=== PATIENT | male | born 1995 | race Caucasian/White ===

== ENCOUNTER 2017-04-11 10:45 | Emergency (ER) | payer SELFPAY ==
[2017-04-11 11:11] VITALS: BP 128/70
[2017-04-11] MEDS ORDERED: Lidocaine 2% VISCOUS* 15 ML UDC PO ONE (11:48)
--- NOTE | 2017-04-11 11:49 | UC ---
Throat Pain/Nasal Jesse HPI - HPI Summary HPI Summary: Pt with sore throat x 2 days. laryngitis. mild nausea, no vomiting. no fever, chills no ear pain. + sinus congestion with PND no analgesia taken. + sick contact Pt's medications reviewed this visit - History of Current Complaint Chief Complaint: UCGeneralIllness Stated Complaint: SORE THROAT Time Seen by Provider: 04/11/17 11:35 Hx Obtained From: Patient Onset/Duration: Gradual Onset, Lasting Days Severity: Mild Cough: Nonproductive Associated Signs & Symptoms: Positive: Nasal Discharge. Negative: Fever, Vomiting - Allergies/Home Medications Allergies/Adverse Reactions: Allergies Allergy/AdvReac Type Severity Reaction Status Date / Time No Known Allergies Allergy Verified 04/11/17 11:11 Home Medications: Home Medications Jrzcedsjoutso-[id number]-[id number] [Vicks Dayquil/Nyquil Cold] 2 tab PO Q6HR PRN 07/27 [History Confirmed 04/11/17] PMH/Surg Hx/FS Hx/Imm Hx Previously Healthy: Yes - Surgical History Surgical History: None Surgery Procedure, Year, and Place: Denies - Family History Known Family History: Positive: None - Social History Occupation: Employed Full-time Lives: With Family Alcohol Use: Occasionally Substance Use Type: None Smoking Status (MU): Current Some Day Smoker Amount Used/How Often: 3cig/week Household Exposure Type: Cigarettes - Immunization History Most Recent Influenza Vaccination: Not UTD Vaccination Up to Date: Yes Review of Systems Constitutional: Negative Skin: Negative ENT: Sore Throat, Sinus Congestion Respiratory: Cough All Other Systems Reviewed And Are Negative: Yes Physical Exam Triage Information Reviewed: Yes Appearance: Well-Appearing, No Pain Distress, Well-Nourished Vital Signs: Initial Vital Signs Temp 98.0 F 04/11/17 11:07 Pulse 56 04/11/17 11:07 Resp 16 04/11/17 11:07 BP 128/70 04/11/17 11:07 Pulse Ox 100 04/11/17 11:07 Vital Signs Reviewed: Yes Eye Exam: Normal Eyes: Positive: Conjunctiva Clear ENT: Positive: Hearing grossly normal, Pharyngeal erythema, Nasal congestion, TMs normal, Hoarse voice. Negative: Tonsillar swelling, Tonsillar exudate Dental Exam: Normal Neck exam: Normal Neck: Positive: Supple, Nontender Respiratory Exam: Normal Respiratory: Positive: Chest non-tender, Lungs clear, Normal breath sounds, No respiratory distress, No accessory muscle use Cardiovascular Exam: Normal Cardiovascular: Positive: RRR, No Murmur, Pulses Normal Abdominal Exam: Normal Abdomen Description: Positive: Nontender, No Organomegaly, Soft Bowel Sounds: Positive: Present Musculoskeletal Exam: Normal Neurological Exam: Normal Neurological: Positive: Alert, Muscle Tone Normal Psychological Exam: Normal Psychological: Positive: Normal Response To Family Skin Exam: Normal Throat Pain/Nasal Course/Dx - Course Course Of Treatment: Pt with sore throat, laryngitis x 2 day. dry cough, nasal congestion. rapid strep neg. Pt given lidocaine - did not like med. symptomatic tx. cold. work note. secretion precaution - Differential Dx/Diagnosis Provider Diagnoses: pharyngitis Discharge - Discharge Plan Condition: Stable Disposition: HOME Patient Education Materials: Pharyngitis (ED) Forms: *Work Release Referrals: Obed BUNN,Sugar [Primary Care Provider] - Additional Instructions: - Okay to alternate ibuprofen (Advil, Motrin) and Tylenol every 3 hours for pain. Take with food. Do NOT take for more than 4-5 days - Okay to gargle and spit every 4 hours as needed for pain - Stay well hydrated - frequent sips of cold fluids will be soothing to your throat (popsicles, jello, ice cream, ice water). Avoid excess caffeine until your symptoms have resolved. - Do not share eating, drinking utensils. Throw out your toothbrush when your symptoms resolved -Throat infections are spread by oral secretions - do not share eating or drinking utensils until you symptoms are resolved. Clean items that may get your secretions such as cell phones, ipads, computer mouse, television remotes - Contact your doctor to arrange a follow-up appointment as needed
== END 2017-04-11 12:24 | disposition home or self-care (01) ==
LOC: UCEAST 10:45
DX: J02.9 Acute pharyngitis, unspecified (principal); F17.210 Nicotine dependence, cigarettes, uncomplicated
CPT/HCPCS: 87651; 99212; G0463

== ENCOUNTER 2018-01-27 09:58 | Emergency (ER) | payer BC, OTHER ==
[2018-01-27 10:13] VITALS: BP 134/70
[2018-01-27] MEDS ORDERED: Tetracaine 0.5% OPTH.SOL 4 ML* 1 DROP BTL BOTH EYES ONE (10:17)
[2018-01-27] MEDS ORDERED: Acetaminop/Codeine 30 MG TAB* 1 TAB (300 MG/30 MG) PO ONE (10:31)
--- NOTE | 2018-01-27 10:32 | UC ---
Eye Complaint HPI - HPI Summary HPI Summary: This is scribe [facility] documenting for attending Nacho Guzman MD. Pt is a 22 y/o M presents to ED c/o eye pain. Pain is rated a 6/10, described as an ache. Assoc. Sx: eye pain. Denies: fever. 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 He reports pain is aggravated by ADL's. I, Dr. Guzman, personally performed the services described in this documentation as scribed in my presence and it is both accurate and complete. - History of Current Complaint Chief Complaint: UCEye Stated Complaint: EYE COMPLAINT Time Seen by Provider: 01/27/18 10:14 Hx Obtained From: Patient Onset/Duration: Sudden Onset, Still Present Timing: Constant Severity Currently: Moderate Pain Intensity: 6 Pain Scale Used: 0-10 Numeric Location of Injury: Conjunctiva Aggravating Factor(s): Other - POS: ADL's Associated Signs And Symptoms: Negative: Vision Impairment Left - blurred vision , Fever - Allergies/Home Medications Allergies/Adverse Reactions: Allergies Allergy/AdvReac Type Severity Reaction Status Date / Time No Known Allergies Allergy Verified 01/27/18 10:13 Home Medications: Home Medications Pantoprazole TAB (NF) [Protonix TAB (NF)] 20 mg PO DAILY 01/27/18 [History Confirmed 01/27/18] PMH/Surg Hx/FS Hx/Imm Hx Other Endocrine History: NEG: DM Other Cardiovascular History: NEG: CAD, HTN - Surgical History Surgical History: None Surgery Procedure, Year, and Place: Denies - Family History Known Family History: Negative: Cardiac Disease, Hypertension, Diabetes - Social History Occupation: Student Lives: With Family Alcohol Use: Occasionally Substance Use Type: None Smoking Status (MU): Current Some Day Smoker Type: Cigarettes Amount Used/How Often: 3cig/week Household Exposure Type: Cigarettes - Immunization History Most Recent Influenza Vaccination: Not UTD Vaccination Up to Date: Yes Review of Systems Constitutional: Other - NEG: fever, chills Eyes: Other - POS: eye pain NEG: blurred vision All Other Systems Reviewed And Are Negative: Yes Physical Exam - Summary Physical Exam Summary: VITAL SIGNS: Reviewed. GENERAL: Patient is a well-developed and nourished Male who is lying comfortable in the stretcher. Patient is not in any acute respiratory distress. HEAD AND FACE: Normocephalic EYES: L eye conjuntival injection, no FB seen secondary to lack of flourescein. EARS: Hearing grossly intact. MOUTH: Oropharynx within normal limits. NECK: Supple, trachea is midline, no adenopathy, no JVD, no carotid bruit. CHEST: Symmetric, no tenderness at palpation LUNGS: Clear to auscultation bilaterally. No wheezing or crackles. CVS: Regular rate and rhythm, S1 and S2 present, no murmurs or gallops appreciated. ABDOMEN: Soft, non-tender. Bowel sounds are normal. No abdominal abnormal pulsations. EXTREMITIES: Full ROM in all major joints, no edema, no cyanosis or clubbing. NEURO: Alert and oriented x 3. No acute neurological deficits. Speech is normal and follows Triage Information Reviewed: Yes Vital Signs: Initial Vital Signs Temp 98.2 F 01/27/18 10:06 Pulse 60 01/27/18 10:06 Resp 18 01/27/18 10:06 BP 134/70 01/27/18 10:06 Pulse Ox 99 01/27/18 10:06 Vital Signs Reviewed: Yes Eye Complaint Course/Dx - Course Course Of Treatment: 22-year-old male presents to the urgent care with chief complaint of having left eye irritation. In the urgent care unable to perform the thoracentesis to rule out coronary patient. There is no available fluorescein strip. Therefore I called Dr. Sánchez's office from ophthalmology and he will be seen the patient is alert and oriented x3. The patient was given 1 Tylenol No. 3 and he will be discharged home with follow-up with and Dr. Sáncehz. Patient agrees with the plan. Patient is hemodynamically stable. - Differential Dx/Diagnosis Provider Diagnoses: eye irritation Discharge - Sign-Out/Discharge Documenting (check all that apply): Patient Departure All imaging exams completed and their final reports reviewed: Yes - Discharge Plan Condition: Stable Disposition: HOME Patient Education Materials: Eye Wash (Into the eye), Eye Foreign Body (ED) Referrals: Irvin Sánchez MD [Medical Doctor] - 3 Days Sugar Clay MD [Primary Care Provider] - 3 Days Additional Instructions: See Dr. Sánchez for further workup of todays visit FOLLOW UP WITH YOUR PRIMARY CARE PROVIDER WITHIN ONE WEEK FOR HIGH BLOOD PRESSURE NOTED TODAY. RETURN TO URGENT CARE FOR ANY WORSENING OR NEW SYMPTOMS. - Billing Disposition and Condition Condition: STABLE Disposition: Home - Attestation Statements Document Initiated by Krissy: Yes Documenting Scribe: Frederick Noguera Provider For Whom Krissy is Documenting (Include Credential): Nacho Guzman MD. Scribe Attestation: Frederick Ariza, hamibed for Nacho Guzman MD. on 01/27/18 at 2133. Scribe Documentation Reviewed: Yes Provider Attestation: The documentation as recorded by the Frederick madrid accurately reflects the service I personally performed and the decisions made by , Nacho Guzman MD.
--- NOTE | 2018-01-28 11:08 | UC ---
- Progress Note Progress Note: no imaging studies ordered Discharge - Sign-Out/Discharge Documenting (check all that apply): Post-Discharge Follow Up All imaging exams completed and their final reports reviewed: No Studies - Discharge Plan Condition: Stable Disposition: HOME Patient Education Materials: Eye Wash (Into the eye), Eye Foreign Body (ED) Referrals: Irvin Sánchez MD [Medical Doctor] - 3 Days Sugar Clay MD [Primary Care Provider] - 3 Days Additional Instructions: See Dr. Sánchez for further workup of todays visit FOLLOW UP WITH YOUR PRIMARY CARE PROVIDER WITHIN ONE WEEK FOR HIGH BLOOD PRESSURE NOTED TODAY. RETURN TO URGENT CARE FOR ANY WORSENING OR NEW SYMPTOMS. - Billing Disposition and Condition Condition: STABLE Disposition: Home
== END 2018-01-27 10:45 | disposition home or self-care (01) ==
LOC: UCEAST 09:58
DX: H57.8 Other specified disorders of eye and adnexa (principal); F17.210 Nicotine dependence, cigarettes, uncomplicated
CPT/HCPCS: 99212; A9270-GY; G0463

== ENCOUNTER 2018-11-03 12:59 | Emergency (ER) | payer BC ==
--- NOTE | 2018-11-03 13:53 | UC ---
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 1 week ago started feeling intermittant numbness in R hand, worse in am , but also occurs throughout day. 2 days ago started feeling same symptoms in L hand. describes feeling "pins and needles" in hand and fingers, occassionally feels pain in forearms as well, resolves if repositions hand and arm. has tried no treatment - History of Current Complaint Chief Complaint: UCUpperExtremity Stated Complaint: NUMBING IN HANDS AND FINGERS Time Seen by Provider: 11/03/18 13:41 Hx Obtained From: Patient Onset/Duration: Gradual Onset Timing: Intermittent Episodes Lasting: - few minutes Pain Intensity: 0 Associated Signs & Symptoms: Negative: Dizziness, Trauma, Weakness - Allergy/Home Medications Allergies/Adverse Reactions: Allergies Allergy/AdvReac Type Severity Reaction Status Date / Time No Known Allergies Allergy Verified 11/03/18 13:11 Home Medications: Home Medications Arginine [l-Arginine] 1,000 mg PO 11/03/18 [History] Dee Root 550 mg PO 11/03/18 [History] Ginkgo Biloba 120 mg PO 11/03/18 [History] Multivitamin [Multivitamins] 1 cap PO 11/03/18 [History] PMH/Surg Hx/FS Hx/Imm Hx Previously Healthy: Yes - Surgical History Surgical History: None Surgery Procedure, Year, and Place: Denies - Family History Known Family History: Negative: Cardiac Disease, Hypertension, Diabetes - Social History Occupation: Employed Full-time Lives: With Family Alcohol Use: Occasionally Substance Use Type: None Smoking Status (MU): Former Smoker Type: Cigarettes Amount Used/How Often: 3cig/week Household Exposure Type: Cigarettes - Immunization History Most Recent Influenza Vaccination: Not UTD Vaccination Up to Date: Yes Review of Systems All Other Systems Reviewed And Are Negative: Yes Constitutional: Positive: Negative Respiratory: Positive: Negative Cardiovascular: Positive: Negative Musculoskeletal: Negative: Decreased ROM Neurological: Positive: Numbness - hands Psychological: Positive: Negative Is Patient Immunocompromised?: No Physical Exam Triage Information Reviewed: Yes Appearance: Well-Appearing, No Pain Distress, Well-Nourished Vital Signs: Initial Vital Signs Temp 98.6 F 11/03/18 13:07 Pulse 61 11/03/18 13:07 Resp 18 11/03/18 13:07 BP 145/83 11/03/18 13:07 Pulse Ox 98 11/03/18 13:07 Vital Signs Reviewed: Yes Respiratory Exam: Normal Cardiovascular Exam: Normal Musculoskeletal Exam: Normal Musculoskeletal: Positive: Strength Intact, ROM Intact, No Edema Neurological Exam: Normal Neurological: Positive: Alert, Other: - positive phalan's test R & L hand/ fingers within 30 secs Psychological Exam: Normal Skin Exam: Normal Course/Dx - Differential Dx - Multi-Symptom Differential Diagnoses: Other - carpal tunnel syndrome, muscle strain - Diagnoses Provider Diagnosis: Carpal tunnel syndrome on both sides Discharge - Sign-Out/Discharge Documenting (check all that apply): Patient Departure All imaging exams completed and their final reports reviewed: No Studies - Discharge Plan Condition: Good Disposition: HOME Referrals: Sugar Clay MD [Primary Care Provider] - 2 Weeks (if symptoms no better) Additional Instructions: Carpal tunnel syndrome is a common condition that causes pain, numbness, and tingling in the hand and arm. The condition occurs when one of the major nerves to the hand the median nerve is squeezed or compressed as it travels through the wrist. Symptoms of carpal tunnel syndrome may include: * Numbness, tingling, burning, and painprimarily in the thumb and index, middle , and ring fingers * Occasional shock-like sensations that radiate to the thumb and index, middle, and ring fingers * Pain or tingling that may travel up the forearm toward the shoulder * Weakness and clumsiness in the handthis may make it difficult to perform fine movements such as buttoning your clothes * Dropping thingsdue to weakness, numbness, or a loss of proprioception ( awareness of where your hand is in space) In most cases, the symptoms of carpal tunnel syndrome begin graduallywithout a specific injury. Many patients find that their symptoms come and go at first. However, as the condition worsens, symptoms may occur more frequently or may persist for longer periods of time. Night-time symptoms are very common. Because many people sleep with their wrists bent, symptoms may awaken you from sleep. During the day, symptoms often occur when holding something for a prolonged period of time with the wrist bent forward or backward, such as when using a phone, driving, or reading a book. Instructions: Start Vitamin B6 supplement every day (over the counter) use the cock-up splint given to you at bedtime every night (may use one on Left wrist as well) Also use ibuprofen 600-800mg every 6 hours fr the next 7-10 days. Take with food - Billing Disposition and Condition Condition: GOOD Disposition: Home - Attestation Statements Provider Attestation: I was available for consult. This patient was seen by the SEN. The patient was not presented to, seen by, or examined by me. -Brynn
[2018-11-03 14:16] VITALS: BP 145/83
== END 2018-11-03 14:14 | disposition home or self-care (01) ==
LOC: UCEAST 12:59
DX: G56.03 Carpal tunnel syndrome, bilateral upper limbs (principal); Z87.891 Personal history of nicotine dependence
CPT/HCPCS: 99212; G0463

== ENCOUNTER 2019-01-13 10:12 | Emergency (ER) | payer BC, OTHER ==
[2019-01-13 10:29] VITALS: BP 117/67
--- NOTE | 2019-01-13 10:45 | UC ---
Skin Complaint HPI - HPI Summary HPI Summary: 23 yo male presents with sore to left foot. 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 About 3-4 days ago he developed a small red rash to the anterior aspect of his left ankle. He developed pain and blistering to the area. He popped the blister and applied a bandage. He is here today with concerns of infection. Denies fever, chills, drainage, or streaking. - History of Current Complaint Chief Complaint: UCRash Time Seen by Provider: 01/13/19 10:31 Stated Complaint: RASH Hx Obtained From: Patient Onset/Duration: Gradual Onset Onset Severity: Moderate Current Severity: Moderate Pain Intensity: 4 Pain Scale Used: 0-10 Numeric - Allergy/Home Medications Allergies/Adverse Reactions: Allergies Allergy/AdvReac Type Severity Reaction Status Date / Time No Known Allergies Allergy Verified 01/13/19 10:29 PMH/Surg Hx/FS Hx/Imm Hx - Additional Past Medical History Additional PMH: None - Surgical History Surgical History: None Surgery Procedure, Year, and Place: Denies - Family History Known Family History: Negative: Cardiac Disease, Hypertension, Diabetes - Social History Occupation: Employed Full-time Lives: With Family Alcohol Use: Occasionally Substance Use Type: None Smoking Status (MU): Former Smoker Type: Cigarettes Amount Used/How Often: 3cig/week Household Exposure Type: Cigarettes - Immunization History Most Recent Influenza Vaccination: Not UTD Vaccination Up to Date: Yes Review of Systems All Other Systems Reviewed And Are Negative: Yes Constitutional: Positive: Negative Skin: Positive: Other - Sore on left foot Respiratory: Positive: Negative Cardiovascular: Positive: Negative Neurovascular: Positive: Negative Musculoskeletal: Positive: Negative Neurological: Positive: Negative Psychological: Positive: Negative Physical Exam - Summary Physical Exam Summary: GENERAL: NAD. WDWN. No pain distress. SKIN: LEFT ankle: Anterior ankle with 1.5cm diameter area of open wound just through the epidermis with healing tissue - consistent with recently popped blister. Mildly TTP. No drainage, streaking, erythema, or edema. NECK: Supple. Nontender. No lymphadenopathy. CHEST: No accessory muscle use. Breathing comfortably and in no distress. CV: Pulses intact. Cap refill <2seconds MSK: LEFT ankle from NEURO: Alert. PSYCH: Age appropriate behavior. Triage Information Reviewed: Yes Vital Signs: Initial Vital Signs Temp 98.3 F 01/13/19 10:26 Pulse 58 01/13/19 10:26 Resp 18 01/13/19 10:26 BP 117/67 01/13/19 10:26 Pulse Ox 100 01/13/19 10:26 Vital Signs Reviewed: Yes Course/Dx - Course Course Of Treatment: Wound appears to be healing well, but will place him on bactroban ointment for the open wound. Bandaged today with telfa. Advised to keep covered changing the dressing daily until well healed. - Diagnoses Provider Diagnosis: Blister of left ankle Discharge - Sign-Out/Discharge Documenting (check all that apply): Patient Departure All imaging exams completed and their final reports reviewed: No Studies - Discharge Plan Condition: Stable Disposition: HOME Prescriptions: Mupirocin 2% OINT* [Bactroban 2 % Oint*] 1 applic TOPICAL BID #1 tube Patient Education Materials: Blister (ED) Referrals: Sugar Clay MD [Primary Care Provider] - Additional Instructions: If you develop a fever, shortness of breath, chest pain, new or worsening symptoms - please call your PCP or go to the ED immediately. Change the dressing daily until well healed - Billing Disposition and Condition Condition: STABLE Disposition: Home
== END 2019-01-13 10:54 | disposition home or self-care (01) ==
LOC: UCEAST 10:12
DX: S90.522A Blister (nonthermal), left ankle, initial encounter (principal); W60.XXXA Contact with nonvenomous plant thorns and spines and sharp leaves, initial encounter; Y92.828 Other wilderness area as the place of occurrence of the external cause; Z87.891 Personal history of nicotine dependence
CPT/HCPCS: 99212; G0463

== ENCOUNTER 2019-09-26 09:45 | Emergency (ER) | payer BC ==
--- NOTE | 2019-09-26 09:53 | UC ---
Ear Complaint HPI - HPI Summary HPI Summary: CHIEF COMPLAINT: left ear pain HPI: This is a 24 year old male with left ear pain; "clogged"; for 2 days; has stayed the same; no radiation. 09/17 discomfort. VITAL SIGNS REVIEWED. Within normal limits unless noted here. 138/81 NURSES NOTE REVIEWED. "pt with ear pain on his left ear, but both have been hurting for a while. afebrile. no cough, sob, sore throat. " - History of Current Complaint Stated Complaint: EAR PAIN Time Seen by Provider: 09/26/19 09:47 Hx Obtained From: Patient - Allergies/Home Medications Allergies/Adverse Reactions: Allergies Allergy/AdvReac Type Severity Reaction Status Date / Time No Known Allergies Allergy Verified 09/26/19 09:53 Home Medications: Home Medications Arginine [l-Arginine] 1,000 mg PO 11/03/18 [History] Dee Root 550 mg PO 11/03/18 [History] Ginkgo Biloba 120 mg PO 11/03/18 [History] Multivitamin [Multivitamins] 1 cap PO 11/03/18 [History] Mupirocin 2% OINT* [Bactroban 2 % Oint*] 1 applic TOPICAL BID #1 tube 01/13/19 [ Rx] PMH/Surg Hx/FS Hx/Imm Hx - Additional Past Medical History Additional PMH: PAST MEDICAL HISTORY- denies admission Nurse's past medical history, family history and social history reviewed. CHRONIC & RECURRENT HEALTH PROBLEM LIST REVIEWED. VISIT HISTORY REVIEWED. MEDICATIONS & ALLERGIES REVIEWED. HYPERTENSION HISTORY REVIEWED. 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 Previously Healthy: Yes - Surgical History Surgical History: None Surgery Procedure, Year, and Place: Denies - Family History Known Family History: Negative: Cardiac Disease, Hypertension, Diabetes - Social History Alcohol Use: Occasionally Substance Use Type: None Smoking Status (MU): Former Smoker Type: Cigarettes Amount Used/How Often: 3cig/week Household Exposure Type: Cigarettes - Immunization History Most Recent Influenza Vaccination: Not UTD Vaccination Up to Date: Yes Review of Systems All Other Systems Reviewed And Are Negative: Yes Constitutional: Positive: Negative Skin: Positive: Rash - psoriasis chronic ENT: Positive: Other - congestion, decreased hearing left ear Respiratory: Positive: Negative Cardiovascular: Positive: Negative Gastrointestinal: Positive: Negative Is Patient Immunocompromised?: No Physical Exam - Summary Physical Exam Summary: Appearance: The patient is well-appearing, is well-nourished, and is in no pain or distress. Eyes: Conjunctiva are clear. Pupils are equal and reactive to light and accommodation. Extraocular muscle movement is intact. ENT: The hearing is grossly normal, the pharynx is normal, and the TMs are normal. There is cerumen in both EAC and evidence of psoriasis and mild erythema. Tragus is not tender on right or left. There is no muffled or hoarse voice. No stridor. Neck: The neck is supple and there is no lymphadenopathy. Respiratory: The chest is non-tender to palpation and without crepitus. The lungs are clear, there are normal breath sounds, and there is no respiratory distress. No wheezes, rales or rhonchi. Cardiovascular: Heart sounds reveal a regular rate and rhythm. There are no clicks, rubs or murmurs. There are no carotid bruits. Circulation is grossly intact. Abdomen: The abdomen is soft and nontender. Bowel sounds are present and within normal limits. There is no gross organomegaly. No point tenderness at McBurney s point. No CVA tenderness. Musculoskeletal: Strength is intact. The patient moves all extremities. Neurological: The patient is alert. Motor and sensory are examination grossly intact. Speech is normal. Psychological: The patient displays age appropriate behavior, and is conversant. GCS=15. Skin: Psoriatic lesions diffusely including EAC of left and right ears. Procedure: EAC irrigation bilaterally with good results. Patient feels "100% better." Triage Information Reviewed: Yes Vital Signs Reviewed: Yes Ear Complaint Course/Dx - Course Course Of Treatment: Patient presents with the complaint of ear discomfort and decreased hearing, left ear more than right for 2 days. No history of fever or tenderness with ear touching. Patient has chronic, diffuse psoriasis. Differential includes cerumen impaction, external otitis, otitis media, perforated tympanic membrane, infection of the outer ear and extension causing acute mastoiditis. Examination of the ear shows no foreign body but there is cerumen impaction. There is no drainage consistent with ruptured tympanic membrane. There is no tenderness over the mastoid. There is no vesicular rash or facial neuropathy consistent with Bhupendra Virgen Syndrome. There is no evidence of malignant otitis externa, pneumonia, dehydration, sepsis, dental or intraoral infections. TMJ is not painful. TM 's are intact. Tragus bilaterally are non-tender. The patient's ears are impacted with cerumen. I believe this is the source of symptoms. Ear irrigation was ordered. After removal of cerumen with warm water irrigation, the patient feels improved and the canals are patent. My diagnosis is bilateral cerumen impaction, resolved after irrigation by nurse. We discussed proper ear care, the diagnosis, follow-up plan, and return precautions. All the patient's questions were answered. - Differential Dx/Diagnosis Differential Diagnosis/HQI/PQRI: Cellulitis, Cerumen Impaction Provider Diagnosis: Cerumen impaction Discharge ED - Sign-Out/Discharge Documenting (check all that apply): Patient Departure All imaging exams completed and their final reports reviewed: No Studies - Discharge Plan Condition: Stable Disposition: HOME Referrals: Obed BUNN,Sugar [Medical Doctor] - Additional Instructions: WE DISCUSSED: PLEASE SEEK CARE AT THE EMERGENCY DEPARTMENT IF SYMPTOMS WORSEN OR IF NEW SYMPTOMS DEVELOP. FOLLOW UP WITH YOUR PRIMARY CARE PHYSICIAN IF CONDITION CONTINUES BEYOND 3 DAYS WITHOUT IMPROVEMENT. YOUR DIAGNOSIS IS: WAX IN BOTH EARS, now irrigated out YOUR PRESCRIPTION RECOMMENDATION IS: None; try hydrocortisone cream to outside of ear canal 2 times a day for 3 days if the psoriasis builds up Your blood pressure reading today was 131/81, indicating mild hypertension. This is probably related to your discomfort. Nonetheless, follow-up within 4 weeks for blood pressure check and appropriate recommendations and treatment, as needed. Recheck if you have any ear pain, swelling or new symptoms. Call us at any time if you have questions or concerns. - Billing Disposition and Condition Condition: STABLE Disposition: Home
[2019-09-26 09:58] VITALS: BP 138/81
== END 2019-09-26 10:42 | disposition home or self-care (01) ==
LOC: UCEAST 09:45
DX: H61.23 Impacted cerumen, bilateral (principal); Z87.891 Personal history of nicotine dependence; L40.9 Psoriasis, unspecified
CPT/HCPCS: 99213; G0463